=== PATIENT | female | born 1955 | race Caucasian/White ===

== ENCOUNTER 2016-09-11 00:11 | Emergency (ER) | payer MEDICARE, OTHER ==
--- NOTE | ~2016-09-11 | CR72 ---
[facility] A Service of [facility] & [facility] RADIOLOGY TEXT RESULTS PATIENT: JOSÉ MIGUEL STEARNS LOCATION: [facility] : 51 UNIT #: [id number] AGE: [address]: Pranav Tapia MD SEX: F ORDER DR: [id number] [facility] [address] [place], [place] [address] [id number] E MR#: [id number] Acc #: [id number] NAME: JOSÉ MIGUEL STEARNS. : 1955 SEX: F STUDY DATE/TIME: 09/11/2016 0:49 UNIT: [facility] ROOM: STUDY DESCRIPTION: CR Chest Single View Portable Attending Physician: Pranva Tapia M.D. Ordering Physician: Pranav Tapia M.D. Primary Care Physician: Primary Care Physician No MEDICAL IMAGING REPORT This report is preliminary unless electronic signature is present EXAM Portable chest INDICATION Shortness of air today. PROCEDURE Frontal view chest COMPARISON 07/14/2016 FINDINGS Heart size within normal limits. No dense consolidation, pleural fluid or pneumothorax. IMPRESSION No active process. Dictated by... Aleksandr Mcmanus M.D. THIS IS AN ELECTRONICALLY VERIFIED REPORT Aleksandr Mcmanus M.D. at 09/11/2016 9:58 PM Christin TD: 09/11/2016 08:37 JOB #: [id number] MEDICAL IMAGING REPORT Page 1 of 1 COPY
--- NOTE | ~2016-09-11 | EKG ---
PATIENT: JOSÉ MIGUEL STEARNS UNIT #: [id number] Ventricular Rate: 105 BPM Atrial Rate: 105 BPM P-R Interval: 174 ms QRS Duration: 72 ms Q-T Interval: 344 ms QTC Calculation(Bezet): 454 ms Calculated R Dillon: 137 degrees Calculated T Dillon: 155 degrees Diagnosis Line: Suspect arm lead reversal, interpretation Diagnosis Line: assumes no reversal Diagnosis Line: Sinus tachycardia Diagnosis Line: Low voltage QRS Diagnosis Line: Possible Inferior infarct , age undetermined Diagnosis Line: Anterolateral infarct , age undetermined Diagnosis Line: Abnormal ECG Diagnosis Line: When compared with ECG of 31-MAR-2016 08:15, Diagnosis Line: QRS axis Shifted right Diagnosis Line: Anterolateral infarct is now Present Diagnosis Line: Confirmed by GABRIELLA SHAW MD ([id number]) on Diagnosis Line: 09/11/2016 3:20:44 PM INTERPRETING MD: VALERIA LORA
[~2016-09-11 00:11] MED LIST: ALBUTEROL1.25 MG/3 INH; ALBUTEROL17 GM; ALLERGY RELIEF10 M6 PO; ANTI-ITCH28 GM TOP; ASPIRIN PO; ASPIRIN81 MG PO; ATENOLOL PO; CELEXA20 M1 PO; CIPRO PO; CLOTRIMAZOLE-BE45 GM TOP; FUROSEMIDE40 MG PO; GAVILYTE-G SO4000 ML PO; GLUCOPHAGE500 M1 PO; HYDROCODON-ACE1 EAC5 PO; HYDROCODONE-APA1 T54 PO; LASIX; LASIX PO; LEVAQUIN250 MG PO; LIPITOR PO; LISINOPRIL5 MG PO; LO-DOSE ASPIRIN81 M1 PO; LORTAB 10/500 T1 TAB PO; LORTAB 7.5-5001 TAB PO; LYRICA PO; METFORMIN HCL500 M1 PO; MULTI VITAMIN1 EACH PO; MULTI-VITAMIN1 EAC1 PO; NAPROSYN500 MG PO; NEXIUM PO; NITROSTAT0.4 MG SL; ONDANSETRON ODT4 MG PO; POTASSIUM CHLO10 ME1 PO; PRAVASTATIN SOD80 MG PO; RANITIDINE HCL150 M1; SEROQUEL XR150 MG PO; VITAMIN D50000 UNIT PO; ZANTAC PO; ZESTRIL5 MG PO; ZITHROMAX PO; ZYRTEC; ZYRTEC5 M2 PO
[2016-09-11 01:19] LABS: BASOPHIL# 0.1 X10e3 (0-0.3); BASOPHIL% 0.9 % (0-2.5); DIFF IND NO; EOSINOPHIL# 0.1 X10e3 (0-0.7); EOSINOPHIL% 1.2 % (0.0-7.0); HEMATOCRIT 42.5 % (35.0-45.0); HEMOGLOBIN 14.1 gm/dL (12.0-16.0); MEAN CELL VOLUME 89.9 FL (83-96); MEAN CORPUSCULAR HEMOGLOBIN 29.8 PG (28-34); MEAN CORPUSCULAR HGB CONC 33.1 g/dL (30-36); MONOCYTE# 0.9 X10e3 (0-1.0); MONOCYTE% 9.4 % (3.0-12.0); NEUTROPHIL# 5.5 X10e3 (1.5-7.1); NEUTROPHIL% 57.5 % (40-75); PLATELET COUNT 204 X10e3 (140-420); RED BLOOD COUNT 4.72 X10e (3.90-5.30); RED CELL DISTRIBUTION WIDTH 13.2 % (11.0-15.5); WHITE BLOOD COUNT 9.6 X10e3 (4.0-10.5)
[2016-09-11 01:35] LABS: POC - CKMB 1.6 ng/mL (0.0-7.9); POC - TROPONIN <0.05 ng/mL (<=0.05)
[2016-09-11 01:39] LABS: ALBUMIN SERUM 4.2 g/dL (3.5-5.0); ALKALINE PHOSPHATASE 70 U/L (32-92); ALT (SGPT) 17 U/L (10-40); AST (SGOT) 15 U/L (10-42); BILIRUBIN,TOTAL 0.4 mg/dL (0.2-2.0); BLOOD UREA NITROGEN 19 mg/dL (9-23); BUN/CREATININE RATIO 23.75; CALCIUM SERUM 9.4 mg/dL (8.4-10.2); CARBON DIOXIDE 25 mmol/L (22-31); CHLORIDE 104 mmol/L (100-111); CREATININE SERUM 0.8 mg/dL (0.6-1.4); GLOM FILT RATE Estimated 79.1 mL/min (>60); GLUCOSE FASTING 100 mg/dL (70-110); POTASSIUM 3.6 mmol/L (3.5-5.1); PROTEIN TOTAL SERUM 8.1 g/dL (6.0-8.3); SODIUM 139 mmol/L (135-145)
[2016-09-11 01:49] LABS: BILIRUBIN, DIRECT <0.1 mg/dL (0.0-0.2); BILIRUBIN,INDIRECT 0.3 mg/dL (0.0-0.9)
== END 2016-09-11 03:30 | disposition home or self-care (01) ==
LOC: CED 00:11
PROVIDERS: Emergency Medicine
DX: R07.89 Other chest pain (principal); M54.5 Low back pain; E78.5 Hyperlipidemia, unspecified; I11.0 Hypertensive heart disease with heart failure; I50.9 Heart failure, unspecified; Z86.73 Personal history of transient ischemic attack (TIA), and cerebral infarction without residual deficits; Z88.8 Allergy status to other drugs, medicaments and biological substances; Z88.0 Allergy status to penicillin; Z88.2 Allergy status to sulfonamides; Z79.899 Other long term (current) drug therapy; Z79.82 Long term (current) use of aspirin
CPT/HCPCS: 36415; 71010; 80048; 80076; 82553; 83880; 84484; 85025; 93005; 96374; 99284; J1885

== ENCOUNTER 2016-10-31 11:37 | Emergency (ER) | payer MEDICARE, OTHER ==
--- NOTE | ~2016-10-31 | CT71 ---
[facility] A Service of [facility] RADIOLOGY TEXT RESULTS PATIENT: JOSÉ MIGUEL STEARNS LOCATION: [facility] : 51 UNIT #: [id number] AGE: [address]: Dian Chery MD SEX: F ORDER DR: [id number] [place] [id number] [facility]. [place], [place] [address] [id number] E MR#: [id number] Acc #: [id number] NAME: JOSÉ MIGUEL STEARNS. : 1955 SEX: F STUDY DATE/TIME: 10/31/2016 14:20 UNIT: [facility] ROOM: STUDY DESCRIPTION: CT Head Wo Contrast Attending Physician: Dian Chery M.D. Ordering Physician: Dian Chery M.D. Primary Care Physician: Indigo Carlson M.D. MEDICAL IMAGING REPORT This report is preliminary unless electronic signature is present EXAM CT head without IV contrast COMPARISON April 21, 2015. TECHNIQUE This CT exam was performed with one or more of the following radiation dose reduction techniques: automatic exposure control, adjustment of mA and/or kV according to patient size, and iterative reconstruction. HISTORY 60-year-old female with headache and left-sided facial numbness for 1 week. Patient reports that the headache is frontal in location. FINDINGS Anterior cervical fusion hardware is incompletely imaged, only noted at C4. No evidence of complication is seen on the topogram. No acute fractures or suspicious osseous lesions. Mastoid air cells, middle ears, visualized paranasal sinuses are well-aerated. There are calcifications of the cavernous internal carotid arteries bilaterally. There is normal cerebral volume. No mass effect or abnormal extraaxial fluid collection. No acute intracranial hemorrhage. No evidence of acute ischemia. IMPRESSION No acute intracranial abnormality. Dictated by... Seb Nuñez M.D. THIS IS AN ELECTRONICALLY VERIFIED REPORT [facility] A Service of [facility] & [facility] RADIOLOGY TEXT RESULTS PATIENT: JOSÉ MIGUEL STEARNS LOCATION: [facility] : 51 UNIT #: [id number] AGE: [address]: Dian Chery MD SEX: F ORDER DR: Seb Nuñez M.D. at 11/04/2016 5:14 PM BLM/pcl TD: 10/31/2016 21:44 JOB #: [id number] MEDICAL IMAGING REPORT Page 1 of 1 COPY
[2016-10-31 12:49] LABS: URINE SOURCE CLEAN CATCH
[2016-10-31 12:53] LABS: BASOPHIL# 0.1 X10e3 (0-0.3); BASOPHIL% 0.8 % (0-2.5); EOSINOPHIL# 0.1 X10e3 (0-0.7); EOSINOPHIL% 1.4 % (0.0-7.0); HEMATOCRIT 41.3 % (35.0-45.0); HEMOGLOBIN 13.6 gm/dL (12.0-16.0); LYMPHOCYTE# 2.2 X10e3 (1.0-3.5); LYMPHOCYTE% 23.6 % (17.0-45.0); MEAN CELL VOLUME 91.4 FL (83-96); MEAN CORPUSCULAR HEMOGLOBIN 30.2 PG (28-34); MEAN PLATELET VOLUME 10.1 FL (6.5-11.5); MONOCYTE# 0.8 X10e3 (0-1.0); MONOCYTE% 8.3 % (3.0-12.0); NEUTROPHIL# 6.1 X10e3 (1.5-7.1); NEUTROPHIL% 65.9 % (40-75); PLATELET COUNT 174 X10e3 (140-420); RED BLOOD COUNT 4.52 X10e (3.90-5.30); RED CELL DISTRIBUTION WIDTH 13.3 % (11.0-15.5); WHITE BLOOD COUNT 9.3 X10e3 (4.0-10.5)
[2016-10-31 12:57] LABS: DIFF IND NO
[2016-10-31 12:59] LABS: URINE APPEARANCE CLEAR; URINE BILIRUBIN NEG (NEG); URINE BLOOD TRACE (NEG); URINE COLOR YELLOW; URINE GLUCOSE NEG (NEG); URINE KETONE NEG (NEG); URINE LEUKOCYTE ESTERASE 1+ (NEG); URINE NITRATE NEG (NEG); URINE PROTEIN NEG (NEG); URINE SPECIFIC GRAVITY 1.027 (1.003-1.035); URINE UROBILINOGEN 0.2 MG/DL (NEG)
[2016-10-31 13:01] LABS: CULTURE INDICATED? YES; URINE BACTERIA AUWI 1+ (NEGATIVE); URINE SQUAMOUS EPITHELIAL CELL OCC /[HPF]
[2016-10-31 13:06] LABS: INR 0.9; PARTIAL THROMBOPLASTIN TIME 24.6 SECONDS (23.5-31.3)
[2016-10-31 13:18] LABS: URINE CRYSTALS CALCIUM OXALATE /[HPF]
[2016-10-31 13:19] LABS: URINE MUCUS PRESENT
[2016-10-31 13:19] LABS: ALBUMIN SERUM 4.1 g/dL (3.5-5.0); ALKALINE PHOSPHATASE 68 U/L (32-92); ALT (SGPT) 17 U/L (10-40); AST (SGOT) 15 U/L (10-42); BILIRUBIN,TOTAL 0.3 mg/dL (0.2-2.0); BLOOD UREA NITROGEN 18 mg/dL (9-23); CALCIUM SERUM 9.3 mg/dL (8.4-10.2); CARBON DIOXIDE 26 mmol/L (22-31); CHLORIDE 104 mmol/L (100-111); CREATININE SERUM 0.6 mg/dL (0.6-1.4); GLOM FILT RATE Estimated 97.7 mL/min (>60); GLUCOSE FASTING 94 mg/dL (70-110); POTASSIUM 4.1 mmol/L (3.5-5.1); SODIUM 136 mmol/L (135-145)
[2016-10-31 13:20] LABS: BILIRUBIN, DIRECT <0.1 mg/dL (0.0-0.2); BILIRUBIN,INDIRECT 0.2 mg/dL (0.0-0.9)
[2016-10-31 13:24] LABS: AMPHETAMINE NEG (NEG); BARBITURATES NEG (NEG); BENZODIAZEPINES NEG (NEG); COCAINE NEG (NEG); MARIJUANA NEG (NEG); OPIATES NEG (NEG); TRICYCLIC ANTIDEPRESSANTS NEG (NEG); U METHADONE NEG (NEG)
== END 2016-10-31 15:00 | disposition home or self-care (01) ==
LOC: CED 11:37
PROVIDERS: Student in an Organized Health Care Education/Training Program
DX: R51 Headache (principal); M54.2 Cervicalgia; M54.9 Dorsalgia, unspecified; G89.29 Other chronic pain; I11.0 Hypertensive heart disease with heart failure; I50.9 Heart failure, unspecified; J45.909 Unspecified asthma, uncomplicated; Z90.49 Acquired absence of other specified parts of digestive tract; Z88.0 Allergy status to penicillin; Z88.2 Allergy status to sulfonamides; Z88.1 Allergy status to other antibiotic agents; Z86.73 Personal history of transient ischemic attack (TIA), and cerebral infarction without residual deficits; Z88.8 Allergy status to other drugs, medicaments and biological substances
CPT/HCPCS: 36415; 70450; 80048; 80076; 80307; 81003; 85025; 85610; 85730; 87086; 99284